=== PATIENT | female | born 1955 | race Caucasian/White ===

== ENCOUNTER 2017-11-16 23:01 | Emergency (ER) | payer MEDICARE ==
[2017-11-17] MEDS ORDERED: CEFTRIAXONE INJ 1000 MG VIAL IV ONE (00:51)
[2017-11-17] MEDS ORDERED: SULFAMETHOXAZOLE/TRIMETHOPRIM 800-160 MG TABLET PO ONE (00:52)
--- NOTE | 2017-11-17 00:55 | ER Document Report ---
ED Extremity Problem, Lower - General Chief Complaint: Leg Pain Stated Complaint: LEFT LEG INFECTION Time Seen by Provider: 11/17/17 00:46 Notes: Patient is a 62-year-old female with a past medical history of lymphedema that comes to the emergency department for chief complaint of suspected cellulitis in the left lateral lower leg. She states that she developed a small sore or skin abrasion and she has noticed that over the past 2-3 days she has developed redness, increased warmth, and some pain. She denies severe pain, discolored discharge, fever, she states she might have had chills yesterday but none today. She denies diabetes. Reports her tetanus is up-to-date within 5 years. She states she had cellulitis of her lower extremity in the past but not recently. TRAVEL OUTSIDE OF THE [place] IN LAST 30 DAYS: No - Related Data Allergies/Adverse Reactions: amoxicillin [From Augmentin] Allergy (Verified 11/16/17 23:22) clavulanic acid [From Augmentin] Allergy (Verified 11/16/17 23:22) Past Medical History - General Information source: Patient - Social History Smoking Status: Never Smoker Frequency of alcohol use: None Drug Abuse: None Lives with: Family Family History: Reviewed & Not Pertinent - Immunizations Immunizations up to date: Yes Hx Diphtheria, Pertussis, Tetanus Vaccination: Yes Review of Systems - Review of Systems Constitutional: No symptoms reported EENT: No symptoms reported Cardiovascular: No symptoms reported Respiratory: No symptoms reported Gastrointestinal: No symptoms reported Genitourinary: No symptoms reported Female Genitourinary: No symptoms reported Musculoskeletal: See HPI Skin: See HPI Hematologic/Lymphatic: No symptoms reported Neurological/Psychological: No symptoms reported Physical Exam - Vital signs Vitals: Temp Pulse Resp BP Pulse Ox 99.2 F 79 16 153/72 H 99 11/17/17 00:04 11/17/17 00:04 11/17/17 00:04 11/17/17 00:04 11/17/17 00:04 - Notes Notes: GENERAL: Alert, interacts well. No acute distress. HEAD: Normocephalic, atraumatic. EYES: Pupils equal, round, and reactive to light. Extraocular movements intact. ENT: Oral mucosa moist, tongue midline. NECK: Full range of motion. Supple. Trachea midline. LUNGS: Clear to auscultation bilaterally, no wheezes, rales, or rhonchi. No respiratory distress. HEART: Regular rate and rhythm. No murmur ABDOMEN: Soft, non-tender. Non-distended. Bowel sounds present in all 4 quadrants. EXTREMITIES: Bilateral swelling of the lower extremities consistent with chronic lymphedema, there is chronic discoloration of the lower extremities, however in addition to this over the left distal tibial area laterally there is a small area of skin avulsion with surrounding erythema, warmth, tenderness. No purulent discharge, no induration or fluctuance, no severe tenderness. Normal distal sensation and capillary refill. Normal range of motion of the ankle, knee. Lower extremities unremarkable otherwise. BACK: no cervical, thoracic, lumbar midline tenderness. No saddle anesthesia, normal distal neurovascular exam. NEUROLOGICAL: Alert and oriented x3. Normal speech. [cranial nerves II through XII grossly intact]. PSYCH: Normal affect, normal mood. SKIN: Warm, dry, normal turgor. No rashes or lesions noted. Course - Re-evaluation Re-evalutation: Examination is consistent with bilateral chronic lymphedema and also secondary cellulitis and a skin avulsion location in the left lateral lower extremity. No abscess or induration noted, no fever, no leukocytosis. Patient states she has had bad cellulitis in the past and she wanted to make sure she caught it early. Chemistry generally unremarkable. Patient was given a dose of Bactrim and Rocephin while she was here, she was placed on Bactrim and Keflex antibiotics, discussed wound care, primary care follow-up, and strict return precautions. I offered referral to the wound care clinic but patient declined. She states she is used to taking care of this kind of skin avulsion. Patient states understanding and agreement with plan. - Vital Signs Vital signs: Temp Pulse Resp BP Pulse Ox 98.8 F 81 14 142/67 H 100 11/17/17 02:28 11/17/17 02:28 11/17/17 02:28 11/17/17 02:28 11/17/17 02:28 - Laboratory Result Diagrams: 11/17/17 01:10 11/17/17 01:10 Laboratory results interpreted by me: 11/17/17 11/17/17 01:10 01:10 Hgb 11.8 L Hct 35.6 L RDW 15.3 H Band Neutrophils % 1 L BUN 22 H Est GFR ( Amer) 59 L Est GFR (Non-Af Amer) 49 L Glucose 127 H Discharge - Discharge Clinical Impression: Chronic acquired lymphedema Cellulitis Qualifiers: Site of cellulitis: extremity Site of cellulitis of extremity: lower extremity Laterality: left Qualified Code(s): L03.116 - Cellulitis of left lower limb Condition: Stable Disposition: HOME, SELF-CARE Additional Instructions: Your examination is consistent with a cellulitis of the left lower extremity. You have been started on antibiotics, please take prescribed antibiotics, keep area clean, clean with soap and water, keep clean dressing over the area. Follow-up closely with primary care for additional evaluation and management. Return if you worsen including spreading redness, discolored drainage, severe pain, fever 100.4 or greater, or any other concerning or worsening symptoms. Prescriptions: Cephalexin Monohydrate [Keflex 500 mg Capsule] 500 mg PO QID #28 capsule Sulfamethoxazole/Trimethoprim [Bactrim Ds Tablet] 1 each PO BID #14 tablet Forms: Elevated Blood Pressure
[2017-11-17 01:24] LABS: HEMATOCRIT 35.6 % (36.0-47.0); HEMOGLOBIN 11.8 g/dL (12.0-15.5); MEAN CORPUSCULAR HEMOGLOBIN 28.1 pg (27.0-33.4); MEAN CORPUSCULAR VOLUME 85 fl (80-97); PLATELET COUNT 227 10^3/uL (150-450); RED BLOOD COUNT 4.19 10^6/uL (3.72-5.28); RED CELL DISTRIBUTION WIDTH 15.3 % (11.5-14.0); WHITE BLOOD COUNT 6.9 10^3/uL (4.0-10.5)
[2017-11-17 01:40] LABS: ANION GAP 7 (5-19); BLOOD UREA NITROGEN 22 mg/dL (7-20); CALCIUM 9.2 mg/dL (8.4-10.2); CARBON DIOXIDE 29 mmol/L (22-30); CHLORIDE 101 mmol/L (98-107); GLUCOSE 127 mg/dL (75-110); POTASSIUM 4.3 mmol/L (3.6-5.0); SODIUM 137.2 mmol/L (137-145)
[2017-11-17 01:50] LABS: ABSOLUTE LYMPHOCYTES# (MANUAL) 1.7 10^3/uL (0.5-4.7); ABSOLUTE MONOCYTES # (MANUAL) 0.8 10^3/uL (0.1-1.4); ABSOLUTE NEUTROPHILS# (MANUAL) 4.3 10^3/uL (1.7-8.2); BAND NEUTROPHILS % (MANUAL) 1 % (3-5); BASOPHILS % (MANUAL) 0 % (0-2); EOSINOPHILS % (MANUAL) 3 % (0-6); LYMPHOCYTES % (MANUAL) 24 % (13-45); MONOCYTES % (MANUAL) 11 % (3-13); SEGMENTED NEUTROPHILS % (MAN) 61 % (42-78); TOTAL CELLS COUNTED 100
[2017-11-17 01:51] LABS: ANISOCYTOSIS SLIGHT; PLATELET COMMENT ADEQUATE; PLATELET GIANT PRESENT; PLATELET LARGE PRESENT; TOXIC VACUOLATION PRESENT
[2017-11-17 02:37] VITALS: BP 142/67
== END 2017-11-17 02:37 | disposition home or self-care (01) ==
LOC: ER 23:01
DX: L03.116 Cellulitis of left lower limb (principal); I89.0 Lymphedema, not elsewhere classified; M79.605 Pain in left leg; Z88.0 Allergy status to penicillin
CPT/HCPCS: 99283; 96365; 36415; 85025; 80048; J0696; A9270